=== PATIENT | female | born 1985 | race African-American/Black ===

== ENCOUNTER 2019-01-28 22:43 | Emergency (ER) | payer MEDICAID ==
[~2019-01-28] VITALS: Ht 167.6 cm; Wt 57.3 kg
[2019-01-29] MEDS ORDERED: TETRACAINE 0.5% OPHTH DROPS 4ML OP ONE
[2019-01-29] MEDS ORDERED: FLUORESCEIN SODIUM 1MG/STRIP OP ONE
[2019-01-29] MEDS ORDERED: CIPROFLOXACIN 0.3% OPHTH SOLN 2.5ML RIGHTEYE ONE (00:30)
[2019-01-29 00:43] VITALS: BP 119/69
== END 2019-01-29 00:45 | disposition home or self-care (01) ==
LOC: ER 22:43
DX: H10.9 Unspecified conjunctivitis (principal); H18.821 Corneal disorder due to contact lens, right eye
CPT/HCPCS: 99284

== ENCOUNTER 2019-02-26 12:54 | Emergency (ER) | payer MEDICAID ==
[~2019-02-26] VITALS: Ht 167.6 cm; Wt 57.0 kg
[2019-02-26 13:43] VITALS: BP 145/82
== END 2019-02-26 16:34 | disposition left against medical advice (07) ==
LOC: ER 13:48
DX: F43.22 Adjustment disorder with anxiety (principal); R00.2 Palpitations; R07.9 Chest pain, unspecified
CPT/HCPCS: 99284